=== PATIENT | female | born 1975 | race Caucasian/White ===

== ENCOUNTER 2020-12-19 08:55 | Emergency (ER) | payer OTHER ==
[~2020-12-19] VITALS: Ht 157.5 cm; Wt 68.0 kg
[2020-12-19 09:00] VITALS: BP_SYST 120
--- NOTE | 2020-12-19 09:00 | NUR ---
Patient to ER Tent2 to gown for evaluation. Side rails up.
[2020-12-19] MEDS ORDERED: IBUPROFEN 800 MG TABLET PO ONE (09:15)
[2020-12-19] MEDS ORDERED: NACL 0.9% 1,000 ML IV ONE (09:15)
--- NOTE | 2020-12-19 09:15 | NUR ---
ER at bedside examining patient.
[2020-12-19 09:38] LABS: BASOPHILS % (AUTO) 0.2 % (0.0-2.0); HEMATOCRIT 41.5 % (36-48); HEMOGLOBIN 14.3 g/dL (12.0-16.0); LYMPHOCYTES # (AUTO) 1.1 K/uL (1.0-5.5); LYMPHOCYTES % (AUTO) 26.1 % (20.5-51.5); MEAN CORPUSCULAR HEMOGLOBIN 32 pg (27-31); MEAN CORPUSCULAR HGB CONC 34 % (32-36); MEAN CORPUSCULAR VOLUME 92 fL (79.0-98.0); MONOCYTES # (AUTO) 0.2 K/uL (0.0-1.0); MONOCYTES % (AUTO) 5.3 % (1.7-9.3); NEUTROPHILS % (AUTO) 68.4 % (40.0-70.0); PLATELET COUNT (AUTO) 193 K/uL (130-430); RED BLOOD CELL COUNT(AUTO) 4.51 MIL/uL (4.2-6.2); RED CELL DISTRIBUTION WIDTH 13.2 % (9.0-15.0); WHITE BLOOD COUNT (AUTO) 4.3 K/uL (4.8-10.8)
--- NOTE | 2020-12-19 10:00 | NUR ---
# 20 gauge angiocath placed to RAC. Use of asceptic technique. Opsite placed over site. Blood return noted. Blood for lab drawn from site. Flushed with 10 cc of normal saline. No evidence of infiltration noted. Patient tolerated well.
[2020-12-19 10:11] LABS: INR 0.9 (0.8-1.2); PROTHROMBIN TIME 9.8 SECS (9.5-12.5)
[2020-12-19 10:12] LABS: ALANINE AMINOTRANSFERASE 22 U/L (12-78); ALBUMIN 3.2 g/dL (3.4-4.8); ANION GAP 10 (5-15); ASPARTATE AMINOTRANSFERASE 22 U/L (10-37); CHLORIDE 101 mmol/L (98-107); GLUCOSE 110 mg/dL (70-99); SODIUM SERUM 137 mmol/L (136-145); TOTAL BILIRUBIN 0.3 mg/dL (0.0-1.0); UREA NITROGEN, BLOOD 15 mg/dL (8-21)
[2020-12-19 10:17] LABS: GFR AFRICAN AMERICAN 100 mL/min (>90)
[2020-12-19 10:19] LABS: ACETONE, SERUM NEGATIVE (NEGATIVE)
[2020-12-19] MEDS ORDERED: ONDA-8 TL (10:41)
[2020-12-19] MEDS ORDERED: IBUP-1971 PO (10:41)
--- NOTE | 2020-12-19 11:15 | NUR ---
Pt tolerating IVF and medication well.
[2020-12-19 12:14] VITALS: BP_SYST 120
--- NOTE | 2020-12-19 12:14 | NUR ---
Patient given written and verbal discharge instructions and verbalizes understanding. ER MD discussed with patient the results and treatment provided. Patient in stable condition. ID arm band removed. IV catheter removed intact and dressing applied, no active bleeding. Rx of motrin,zofran given. Patient educated on pain management and to follow up with PMD. Pain Scale 3. Opportunity for questions provided and answered. Medication side effect fact sheet provided.
== END 2020-12-19 12:14 | disposition home or self-care (01) ==
LOC: SED 08:55
DX: R51.9 Headache, unspecified (principal); E86.0 Dehydration
CPT/HCPCS: 36415; 80053; 82009; 82550; 84703; 85025; 85610; 85730; 96360; 99283; J7030